=== PATIENT | male | born 1985 | race African-American/Black ===

== ENCOUNTER 2019-11-24 13:09 | Emergency (ER) | payer OTHER ==
[~2019-11-24] VITALS: Ht 188 cm; Wt 72.6 kg
[2019-11-24 14:58] VITALS: BP 132/80
[2019-11-24] MEDS ORDERED: LIDOCAINE 1% HCL (LOCAL ANESTH.) INJ 20ML MDV IJ ONE (16:00)
[2019-11-24] MEDS ORDERED: TETANUS-DIPTH-ACEL PERTUSSIS 0.5ML SYR Tdap IM ONE (16:00)
== END 2019-11-24 16:48 | disposition home or self-care (01) ==
LOC: ER 13:09
DX: S91.111A Laceration without foreign body of right great toe without damage to nail, initial encounter (principal); Z23 Encounter for immunization; F17.210 Nicotine dependence, cigarettes, uncomplicated; F12.10 Cannabis abuse, uncomplicated; W26.8XXA Contact with other sharp object(s), not elsewhere classified, initial encounter; Y93.89 Activity, other specified; Y92.89 Other specified places as the place of occurrence of the external cause; Y99.8 Other external cause status
CPT/HCPCS: 12001; 90471; 90715; 99283; J2001